=== PATIENT | female | born 1980 | race Caucasian/White ===

== ENCOUNTER 2024-03-28 17:26 | Emergency (ER) | payer OTHER ==
[2024-03-28 17:53] VITALS: RESP 18; TEMP 97.3; BMI 38.0
[2024-03-28 18:52] LABS: BASO % 0.4 % (0-2.0); EOS % 2.8 % (0-4.5); HEMATOCRIT 37.6 % (32.4-45.2); HEMOGLOBIN 12.8 GM/dL (10.7-15.3); LYMPH % 22.4 % (8-40); MCH 31.4 pg (25.7-33.7); MEAN CELL VOLUME 92.3 fl (80-96); MEAN PLT VOLUME 7.6 fl (7.5-11.1); MONO % 6.4 % (3.8-10.2); PLATELET COUNT 315 10^3/uL (134-434); RBC 4.07 M/mm3 (3.60-5.2); RDW 14.1 % (11.6-15.6); WHITE BLOOD COUNT 7.5 K/mm3 (4.0-10.0)
[2024-03-28] MEDS ORDERED: ACETAMINOPHEN INJECTION 100 ML ONE (18:53)
[2024-03-28] MEDS: ACETAMINOPHEN 1000 MG/100 ML BAG IVPB ONE (18:56)
[2024-03-28 18:59] LABS: POTASSIUM 3.6 mmol/L (3.5-5.1)
[2024-03-28 19:02] LABS: ALBUMIN 3.8 g/dl (3.4-5.0)
[2024-03-28 19:03] LABS: BLOOD UREA NITROGEN 11.4 mg/dL (7-18)
[2024-03-28 19:06] LABS: CREATININE 0.8 mg/dL (0.55-1.3)
[2024-03-28 19:07] LABS: BILIRUBIN,TOTAL 0.3 mg/dL (0.2-1); TOT PROT 6.6 g/dl (6.4-8.2)
[2024-03-28 21:18] VITALS: BP 158/91; PULSE 64
== END 2024-03-28 21:42 | disposition home or self-care (01) ==
LOC: JER 17:26
PROC: 3E033NZ Introduction of Analgesics, Hypnotics, Sedatives into Peripheral Vein, Percutaneous Approach (ICD-10-PCS; principal; 2024-03-28)
DX: R06.02 Shortness of breath (principal); R07.89 Other chest pain; M79.671 Pain in right foot; Y93.01 Activity, walking, marching and hiking
CPT/HCPCS: 36415; 71046-TC-FY; 80053; 83880; 84484; 85025; 85379; 93005; 93010; 99285-25; J0131